=== PATIENT | male | born 1965 | race African-American/Black ===

== ENCOUNTER 2017-09-12 06:10 | Day surgery (SDC) | payer BC ==
[~2017-09-12] VITALS: Ht 170.2 cm; Wt 97.1 kg
[2017-09-12] MEDS ORDERED: LACTATED RINGERS 1,000 ML IV SCH (08:15)
[2017-09-12] MEDS ORDERED: PROPOFOL 200MG/20ML VIAL IV ONE ×2 (08:57→09:18)
[2017-09-12] MEDS ORDERED: FENTANYL CITRATE/PF 50MCG/ML 2ML VIAL ONE (08:59)
[2017-09-12] MEDS ORDERED: MIDAZOLAM HCL 2 MG/2 ML VIAL ONE (09:00)
[2017-09-12] MEDS ORDERED: CEFAZOLIN SODIUM 1000MG/VIAL ONE (09:11)
[2017-09-12] MEDS ORDERED: ALBUTEROL 90MCG/PUFF 17GM INHALER INH ONE (09:18)
[2017-09-12] MEDS ORDERED: GLYCOPYRROLATE 0.2 MG/ML 2ML VIAL ONE (09:23)
[2017-09-12] MEDS ORDERED: PHENYLEPHRINE HCL 10 MG/ML 1ML (IV VIAL) IV ONE (09:29)
[2017-09-12] MEDS ORDERED: ONDANSETRON HCL 4MG/2ML VIAL ONE (09:56)
[2017-09-12] MEDS ORDERED: ONDANSETRON HCL 4MG/2ML VIAL IV PRN (11:00)
[2017-09-12] MEDS ORDERED: FENTANYL CITRATE/PF 50MCG/ML 2ML VIAL IV PRN (11:00)
[2017-09-12] MEDS ORDERED: MORPHINE SULFATE 2 MG/ML CPJ (NOT FOR IM USE) IV PRN (11:00)
[2017-09-12] MEDS ORDERED: ATOR20TA65 PO (11:01)
[2017-09-12] MEDS ORDERED: LOSA50TA20 PO (11:01)
== END 2017-09-12 12:20 | disposition home or self-care (01) ==
LOC: OR 06:10
PROVIDERS: ATTEND Urology
DX: N35.9 Urethral stricture, unspecified (principal); I10 Essential (primary) hypertension; K21.9 Gastro-esophageal reflux disease without esophagitis; N13.9 Obstructive and reflux uropathy, unspecified; Z79.899 Other long term (current) drug therapy; Z87.891 Personal history of nicotine dependence; Z85.46 Personal history of malignant neoplasm of prostate
CPT/HCPCS: 52276; 71045; J0690; J2250; J2370; J2405; J3010; J3490; J7120; J2704